=== PATIENT | male | born 1980 | race Caucasian/White ===

== ENCOUNTER 2025-02-12 08:19 | Emergency (ER) | payer OTHER | END 2025-02-12 10:24 | disposition home or self-care (01) | LOC: JP.ED 08:19 | DX: T15.02XA Foreign body in cornea, left eye, initial encounter (principal); F17.200 Nicotine dependence, unspecified, uncomplicated; Z91.030 Bee allergy status | CPT/HCPCS: 65220; 99283; A9270 ==